=== PATIENT | female | born 1975 | race Caucasian/White ===

== ENCOUNTER 2017-08-21 15:48 | Emergency (ER) | payer OTHER ==
[~2017-08-21] VITALS: Ht 154.9 cm; Wt 74.8 kg
[~2017-08-21 15:48] MED LIST: ALBU90I INH; ALBU90OI INH; ALPR.5 PO; AMOCLA875 PO; AMOX500 PO; AZIT250 PO; BENADRYL25 MG PO; CODGUAEL PO; CRUTCH3 USE; Cyclobenzaprine5 MG PO; Cymbalta20 MG PO; DOXY100 PO; HYDACE5 PO; HYDACE7.5 PO; HYDROCORTISON28.4 G3 TOP; IBUP600 PO; LEVSOD50 PO; MULVITMINE PO; NAPR550 PO; Norco 5-325 Ta1 EACH PO; OXYACE5T PO; PROM25 PO; Percocet 5-3251 EACH PO; RXNAPNA550 PO; RXOXYACE PO; RXPROM25 PO; SERT25 PO; Sudogest60 MG PO; TAZAROTENE TOP; THYROID MEDICINE PO; TRAM50 PO
[2017-08-21] MEDS ORDERED: BENZ100A PO (16:52)
[2017-08-21] MEDS ORDERED: Cheratussin AC118 ML PO (16:52)
[2017-08-21] MEDS ORDERED: ALBU90OI INH (16:52)
[2017-08-21] MEDS ORDERED: (None)20 M1 PO (16:52)
[2018-06-23] MEDS ORDERED: Augmentin 500-1 EACH PO (00:54)
== END 2017-08-21 17:17 | disposition home or self-care (01) ==
LOC: ER 15:48
DX: J20.9 Acute bronchitis, unspecified (principal); F17.210 Nicotine dependence, cigarettes, uncomplicated; Z88.2 Allergy status to sulfonamides; Z79.899 Other long term (current) drug therapy; Z90.49 Acquired absence of other specified parts of digestive tract
CPT/HCPCS: 71046; 94640; 99284

== ENCOUNTER 2017-12-01 22:35 | Emergency (ER) | payer OTHER ==
[~2017-12-01] VITALS: Ht 154.9 cm; Wt 77.1 kg
[~2017-12-01 22:35] MED LIST changes: +(None)20 M1 PO; +BENZ100A PO; +Cheratussin AC118 ML PO
[2017-12-01] MEDS ORDERED: Cleocin HCl300 MG PO (23:43)
[2017-12-01] MEDS ORDERED: IBUP600 PO (23:43)
== END 2017-12-02 00:15 | disposition home or self-care (01) ==
LOC: ER 22:35
DX: L03.115 Cellulitis of right lower limb (principal); Z88.2 Allergy status to sulfonamides; Z88.8 Allergy status to other drugs, medicaments and biological substances; Z79.899 Other long term (current) drug therapy; Z79.2 Long term (current) use of antibiotics; F17.210 Nicotine dependence, cigarettes, uncomplicated
CPT/HCPCS: 99283

== ENCOUNTER 2017-12-30 01:17 | Emergency (ER) | payer OTHER ==
[~2017-12-30] VITALS: Ht 154.9 cm; Wt 78.5 kg
[~2017-12-30 01:17] MED LIST changes: +Cleocin HCl300 MG PO
== END 2017-12-30 02:15 | disposition left against medical advice (07) ==
LOC: ER 01:17
DX: Z53.21 Procedure and treatment not carried out due to patient leaving prior to being seen by health care provider (principal)

== ENCOUNTER 2018-10-07 17:45 | Emergency (ER) | payer OTHER ==
[~2018-10-07] VITALS: Ht 154.9 cm; Wt 83.0 kg
[~2018-10-07 17:45] MED LIST changes: +Augmentin 500-1 EACH PO
== END 2018-10-07 19:36 | disposition home or self-care (01) ==
LOC: ER 17:45
DX: M25.531 Pain in right wrist (principal); M79.631 Pain in right forearm; W22.8XXA Striking against or struck by other objects, initial encounter; F17.210 Nicotine dependence, cigarettes, uncomplicated
CPT/HCPCS: 73110; 99283-25

== ENCOUNTER 2019-02-22 06:01 | Emergency (ER) | payer OTHER ==
[~2019-02-22] VITALS: Ht 154.9 cm; Wt 74.8 kg
[2019-02-22] MEDS ORDERED: LEVSOD100 (07:03)
[2019-02-22] MEDS ORDERED: Ultram50 MG PO (08:12)
== END 2019-02-22 08:23 | disposition home or self-care (01) ==
LOC: ER 06:01
DX: S09.90XA Unspecified injury of head, initial encounter (principal); S16.1XXA Strain of muscle, fascia and tendon at neck level, initial encounter; E03.9 Hypothyroidism, unspecified; Z88.2 Allergy status to sulfonamides; Z91.040 Latex allergy status; Z79.899 Other long term (current) drug therapy; W18.30XA Fall on same level, unspecified, initial encounter
CPT/HCPCS: 70450; 72070; 72125; 93005; 93010; 96374; 96375; 99285-25; J2405; J3010

== ENCOUNTER 2023-02-10 11:56 | Emergency (ER) | payer OTHER ==
[~2023-02-10] VITALS: Ht 154.9 cm; Wt 84.8 kg
[~2023-02-10 11:56] MED LIST changes: +LEVSOD100; +Ultram50 MG PO
[2023-02-10 12:35] LABS: BASOPHILS ABSOLUTE AUTO 0.06 K/mm3 (0.00-0.23); BASOPHILS PERCENT AUTO 1 % (0-2); EOSINOPHILS ABSOLUTE AUTO 0.12 K/mm3 (0.00-0.68); EOSINOPHILS PERCENT AUTO 2 % (0-6); Hematocrit 46.7 % (33.0-51.0); Hemoglobin 15.7 g/dL (11.5-16.0); IMMATURE GRAN ABSOLUTE AUTO 0.06 K/mm3 (0.00-0.10); IMMATURE GRAN PERCENT AUTO 1 % (0-1); LYMPHOCYTES ABSOLUTE AUTO 0.63 K/mm3 (0.84-5.20); LYMPHOCYTES PERCENT AUTO 8 % (21-46); MONOCYTES ABSOLUTE AUTO 0.68 K/mm3 (0.16-1.47); MONOCYTES PERCENT AUTO 9 % (4-13); Mean Corpuscular HGB 28.2 pg (26.0-34.0); Mean Corpuscular HGB Conc 33.6 g/dL (31.5-36.5); Mean Corpuscular Volume 84 fL (80-100); Mean Platelet Volume 11.3 fL (9.1-12.4); NEUTROPHILS ABSOLUTE AUTO 6.12 K/mm3 (1.96-9.15); NEUTROPHILS PERCENT AUTO 80 % (41-73); Platelet Count 264 K/mm3 (150-400); RDW Coefficient Variation 14.9 % (11.7-14.2); RDW Standard Deviation 45.1 fL (35.1-46.3); Red Blood Cell Count 5.57 M/mm3 (3.80-5.20); White Blood Cell Count 7.67 K/mm3 (4.00-11.30)
[2023-02-10 12:59] LABS: Albumin, Blood 4.2 g/dL (3.4-5.0); Albumin/Globulin Ratio 1.1 (0.8-1.8); Bilirubin, Total 0.5 mg/dL (0.1-1.0); Bun/Creatinine Ratio 17.1 (12.0-20.0); Calcium, Blood 9.9 mg/dL (8.5-10.1); Creatinine, Blood 0.64 mg/dL (0.40-1.00); Globulin, Blood 3.9 g/dL (2.2-4.0); Potassium, Blood 4.5 mmol/L (3.5-5.5); Total Protein, Blood 8.1 g/dL (6.4-8.2)
[2023-02-10 13:16] LABS: Source, Urine Clean Catch
[2023-02-10 13:19] LABS: Appearance, Urine Clear (Clear); Bilirubin, Urine Neg (Neg); Blood, Urine 2+ (Neg); Color, Urine Yellow (P-Yellow); Glucose Qualitative, Urine Neg (Neg); Ketones, Urine 1+ (Neg); Leukocyte Esterase, Urine Neg (Neg); Nitrite, Urine Neg (Neg); Protein, Urine 2+ (Neg); Urobilinogen, Urine NORM (Normal)
[2023-02-10 13:31] LABS: Bacteria Mod /hpf
[2023-02-10 13:32] LABS: Squamous Epithelial Cells Many /hpf (Few)
[2023-02-10 13:34] LABS: White Blood Cells, Urine 0-2 /hpf (0-5)
[2023-02-10] MEDS ORDERED: CELE100 PO (16:30)
[2023-02-10] MEDS ORDERED: METPRE4DP PO (16:30)
[2023-02-10] MEDS ORDERED: ALLEGRA ALLERGY60 MG PO (16:30)
[2023-02-10 16:49] VITALS: BP 120/84
== END 2023-02-10 16:45 | disposition home or self-care (01) ==
LOC: ER 11:56
PROVIDERS: Physician Assistant
DX: J44.9 Chronic obstructive pulmonary disease, unspecified (principal); T78.40XA Allergy, unspecified, initial encounter; M54.10 Radiculopathy, site unspecified; M25.552 Pain in left hip; G89.29 Other chronic pain; E03.9 Hypothyroidism, unspecified; F17.210 Nicotine dependence, cigarettes, uncomplicated; Z88.2 Allergy status to sulfonamides; Z91.040 Latex allergy status; Z79.899 Other long term (current) drug therapy
CPT/HCPCS: 73502; 80053; 81001; 83690; 84484; 85025; 87086; 93005; 93010; 96374; 99284-25; J1885

== ENCOUNTER 2023-07-18 13:43 | Emergency (ER) | payer OTHER ==
[~2023-07-18] VITALS: Ht 154.9 cm; Wt 81.7 kg
[~2023-07-18 13:43] MED LIST changes: +ALLEGRA ALLERGY60 MG PO; +CELE100 PO; +METPRE4DP PO
[2023-07-18 14:15] VITALS: BP 126/92
[2023-07-18] MEDS ORDERED: ALBU90OI INH (15:45)
[2023-07-18] MEDS ORDERED: BENZ100A PO (15:45)
== END 2023-07-18 15:45 | disposition home or self-care (01) ==
LOC: ER 13:43
DX: J06.9 Acute upper respiratory infection, unspecified (principal); B97.89 Other viral agents as the cause of diseases classified elsewhere; E03.9 Hypothyroidism, unspecified; F17.210 Nicotine dependence, cigarettes, uncomplicated; Z88.2 Allergy status to sulfonamides; Z91.040 Latex allergy status; Z79.899 Other long term (current) drug therapy; Z79.890 Hormone replacement therapy
CPT/HCPCS: 99283

== ENCOUNTER 2024-01-07 20:22 | Emergency (ER) | payer OTHER ==
[~2024-01-07] VITALS: Ht 154.9 cm; Wt 86.2 kg
[~2024-01-07 20:22] MED LIST changes: +LEVSOD112 PO
[2024-01-07 20:54] LABS: BASOPHILS ABSOLUTE AUTO 0.09 K/mm3 (0.00-0.23); BASOPHILS PERCENT AUTO 1 % (0-2); EOSINOPHILS ABSOLUTE AUTO 0.21 K/mm3 (0.00-0.68); EOSINOPHILS PERCENT AUTO 2 % (0-6); Hematocrit 42.3 % (33.0-51.0); Hemoglobin 14.1 g/dL (11.5-16.0); IMMATURE GRAN ABSOLUTE AUTO 0.03 K/mm3 (0.00-0.10); IMMATURE GRAN PERCENT AUTO 0 % (0-1); LYMPHOCYTES ABSOLUTE AUTO 1.87 K/mm3 (0.84-5.20); LYMPHOCYTES PERCENT AUTO 20 % (21-46); MONOCYTES ABSOLUTE AUTO 0.53 K/mm3 (0.16-1.47); MONOCYTES PERCENT AUTO 6 % (4-13); Mean Corpuscular HGB 28.2 pg (26.0-34.0); Mean Corpuscular HGB Conc 33.3 g/dL (31.5-36.5); Mean Corpuscular Volume 85 fL (80-100); Mean Platelet Volume 12.1 fL (9.1-12.4); NEUTROPHILS ABSOLUTE AUTO 6.74 K/mm3 (1.96-9.15); NEUTROPHILS PERCENT AUTO 71 % (41-73); Platelet Count 262 K/mm3 (150-400); RDW Coefficient Variation 13.6 % (11.7-14.2); RDW Standard Deviation 42.3 fL (35.1-46.3); White Blood Cell Count 9.47 K/mm3 (4.00-11.30)
[2024-01-07 21:33] LABS: Albumin/Globulin Ratio 1.1 (0.8-1.8); Bilirubin, Total 0.3 mg/dL (0.1-1.0); Bun/Creatinine Ratio 14.4 (12.0-20.0); Calcium, Blood 10.1 mg/dL (8.5-10.1); Creatinine, Blood 0.7 mg/dL (0.40-1.00); Globulin, Blood 3.7 g/dL (2.2-4.0); Potassium, Blood 3.8 mmol/L (3.5-5.5); Total Protein, Blood 7.7 g/dL (6.4-8.2)
[2024-01-07] MEDS ORDERED: ALBU90OI INH (23:45)
[2024-01-07] MEDS ORDERED: PredniSONE 20 MG Tab PO ONE (23:45)
[2024-01-07] MEDS ORDERED: Benzonatate 100 MG Cap PO ONE (23:45)
[2024-01-07] MEDS ORDERED: Ipratropium/Albuterol SulF 2.5-0.5MG/3 ML Amp INH ONE (23:45)
[2024-01-07] MEDS ORDERED: Ketorolac Tromethamine 30mg Vial IV ONE (23:45)
[2024-01-07] MEDS ORDERED: BENZ100A PO (23:45)
[2024-01-07] MEDS ORDERED: Prednisone20 MG PO (23:45)
[2024-01-07 23:55] VITALS: BP 118/63
== END 2024-01-08 | disposition home or self-care (01) ==
LOC: ER 20:22
PROVIDERS: Emergency Medicine
DX: J44.0 Chronic obstructive pulmonary disease with (acute) lower respiratory infection (principal); J20.8 Acute bronchitis due to other specified organisms; J44.1 Chronic obstructive pulmonary disease with (acute) exacerbation; F17.210 Nicotine dependence, cigarettes, uncomplicated; Z88.2 Allergy status to sulfonamides; Z91.040 Latex allergy status; E03.9 Hypothyroidism, unspecified; J45.909 Unspecified asthma, uncomplicated
CPT/HCPCS: 71046; 80053; 84484; 85025; 93005; 93010; 94640; 94664; 96374; 99284-25; A9270; J1885; J7512

== ENCOUNTER 2024-01-09 16:28 | Inpatient (IN) | payer OTHER ==
[~2024-01-09] VITALS: Ht 154.9 cm; Wt 87.8 kg
[~2024-01-09 16:28] MED LIST changes: +Prednisone20 MG PO
[2024-01-09] MEDS ORDERED: Ipratropium Bromide INH 0.02% 0.5 mg/2.5ML Vial INH SCH (16:45)
[2024-01-09] MEDS ORDERED: Albuterol 2.5 MG/3 ML VIAL INH SCH ×2 (16:45→16:55)
[2024-01-09] MEDS ORDERED: Magnesium Sulf 2 GM/Water 50ML 50 ML IV ONE ×2 (16:55)
[2024-01-09 17:05] LABS: BASOPHILS ABSOLUTE AUTO 0.08 K/mm3 (0.00-0.23); BASOPHILS PERCENT AUTO 1 % (0-2); EOSINOPHILS ABSOLUTE AUTO 0.04 K/mm3 (0.00-0.68); EOSINOPHILS PERCENT AUTO 0 % (0-6); Hematocrit 43.6 % (33.0-51.0); Hemoglobin 14.4 g/dL (11.5-16.0); IMMATURE GRAN ABSOLUTE AUTO 0.09 K/mm3 (0.00-0.10); IMMATURE GRAN PERCENT AUTO 1 % (0-1); LYMPHOCYTES ABSOLUTE AUTO 1.32 K/mm3 (0.84-5.20); LYMPHOCYTES PERCENT AUTO 9 % (21-46); MONOCYTES PERCENT AUTO 5 % (4-13); Mean Corpuscular Volume 85 fL (80-100); Mean Platelet Volume 12.3 fL (9.1-12.4); NEUTROPHILS ABSOLUTE AUTO 12.62 K/mm3 (1.96-9.15); NEUTROPHILS PERCENT AUTO 85 % (41-73); Platelet Count 292 K/mm3 (150-400); RDW Coefficient Variation 13.8 % (11.7-14.2); Red Blood Cell Count 5.14 M/mm3 (3.80-5.20); White Blood Cell Count 14.85 K/mm3 (4.00-11.30)
[2024-01-09 17:21] LABS: Albumin, Blood 3.9 g/dL (3.4-5.0); Bilirubin, Total 0.2 mg/dL (0.1-1.0); Bun/Creatinine Ratio 20.6 (12.0-20.0); Calcium, Blood 9.7 mg/dL (8.5-10.1); Creatinine, Blood 0.73 mg/dL (0.40-1.00); Globulin, Blood 3.8 g/dL (2.2-4.0); Potassium, Blood 3.9 mmol/L (3.5-5.5); Total Protein, Blood 7.7 g/dL (6.4-8.2)
[2024-01-09 17:44] LABS: Base Excess Venous -0.3 mmol/L; Bicarbonate Venous 24.3 mmol/L (24.0-30.0); PCO2 Venous 39 mmHg (38-42); pH Blood Venous 7.41 (7.34-7.37)
[2024-01-09] MEDS ORDERED: Albuterol 2.5 MG/3 ML VIAL INH PRN (17:50)
[2024-01-09] MEDS ORDERED: Acetaminophen 325 MG TABLET PO PRN (17:50)
[2024-01-09] MEDS ORDERED: NS 1,000 ML IV SCH (17:55)
[2024-01-09] MEDS ORDERED: Ondansetron HCl 2 MG / ML 2ML Vial IV PRN (17:55)
[2024-01-09] MEDS ORDERED: Nicotine 21 MG PATCH TOP PRN (17:55)
[2024-01-09] MEDS ORDERED: Ipratropium/Albuterol SulF 2.5-0.5MG/3 ML Amp INH SCH (17:55)
[2024-01-09] MEDS ORDERED: Azithromycin 500 MG in NS 250 ML IV SCH (18:00)
[2024-01-09] MEDS ORDERED: NS 1,000 ML IV ONE ×3 (18:00→20:35)
[2024-01-09] MEDS ORDERED: Guaifenesin/Dextromethorphan Syrup 5 ML UDC PO PRN (18:45)
[2024-01-09] MEDS ORDERED: Benzonatate 100 MG Cap PO PRN (18:45)
[2024-01-09] MEDS ORDERED: MethylPREDNISolone Sod Succ 125 MG Vial IV SCH (19:00)
[2024-01-09 20:32] LABS: Base Excess Venous -2.6 mmol/L; Bicarbonate Venous 22.7 mmol/L (24.0-30.0); PCO2 Venous 35.9 mmHg (38-42)
[2024-01-10] VITALS (7 sets, daily range): BP systolic 120–151; BP diastolic 73–93
[2024-01-10] MEDS ORDERED: Ibuprofen 600 MG Tab PO ONE (01:20)
[2024-01-10 05:20] LABS: Hematocrit 39.2 % (33.0-51.0); Hemoglobin 12.7 g/dL (11.5-16.0); Mean Corpuscular HGB 28.2 pg (26.0-34.0); Mean Corpuscular HGB Conc 32.4 g/dL (31.5-36.5); Mean Corpuscular Volume 87 fL (80-100); Mean Platelet Volume 12.3 fL (9.1-12.4); Platelet Count 271 K/mm3 (150-400); RDW Coefficient Variation 13.9 % (11.7-14.2); RDW Standard Deviation 44.9 fL (35.1-46.3); Red Blood Cell Count 4.51 M/mm3 (3.80-5.20); White Blood Cell Count 11.37 K/mm3 (4.00-11.30)
[2024-01-10 05:46] LABS: Bun/Creatinine Ratio 23.2 (12.0-20.0); Creatinine, Blood 0.52 mg/dL (0.40-1.00); Potassium, Blood 4.3 mmol/L (3.5-5.5)
[2024-01-10] MEDS ORDERED: Enoxaparin 40 MG/0.4 ML SYR SC SCH (09:00)
[2024-01-10] MEDS ORDERED: Ibuprofen 400 MG Tab PO PRN (12:00)
[2024-01-10] MEDS ORDERED: Acetaminophen 325 MG TABLET PO ONE (12:55)
[2024-01-10] MEDS ORDERED: Ketorolac Tromethamine 30mg Vial IV ONE (17:25)
[2024-01-10] MEDS ORDERED: Ketorolac Tromethamine 30mg Vial IV PRN (17:25)
--- NOTE | 2024-01-10 17:47 | NUR ---
ADMIT NOTE/SHIFT SUMMARY PT ARRIVED TO PCU FROM ED VIA WHEELCHAIR. PT AMBULATED INDEPENDENTLY FROM WHEELCHAIR TO PCU BED. PT A&OX4. SP02>90 %on RA, 2L PLACED FOR COMFORT PER PT REQUEST. INTENSE HACKING SEMI PRODUCTIVE COUGH. COUGHING FIT INTO VOMITING THIS EVENING. TELEMETRY SHOWS NSR, HR 80'S-100'S. PT C/O OF HEADACHE. CALL PLACED TO MD [place]. PT RECEIVED MEDICATONS PER EMAR, SEE EMAR. MOST RECENTLY TORADOL X1. PURWIK PLACED TO AVOID AMBULATION D/T SP02 CONCERNS. PT C/O OF PAIN IN ABD. CLOTS WHEN VOIDING IN ER, BUT NONE SINCE CARE ASSUMED BY THIS RN. NOTIFIED. ABX INFUSING PER EMAR. FAMILY CURRENTLY IN ROOM WITH PT. CALL LIGHT IN REACH.
[2024-01-10] MEDS ORDERED: Lactobacil 2-S.Thermo-Bifido 1 1 Cap PO SCH (21:00)
[2024-01-11 03:43] VITALS: BP 133/79
[2024-01-11 04:45] LABS: Hematocrit 41.4 % (33.0-51.0); Hemoglobin 13.6 g/dL (11.5-16.0); Mean Corpuscular HGB 27.9 pg (26.0-34.0); Mean Corpuscular HGB Conc 32.9 g/dL (31.5-36.5); Mean Corpuscular Volume 85 fL (80-100); Mean Platelet Volume 12.3 fL (9.1-12.4); Platelet Count 320 K/mm3 (150-400); RDW Coefficient Variation 14.2 % (11.7-14.2); RDW Standard Deviation 43.6 fL (35.1-46.3); Red Blood Cell Count 4.88 M/mm3 (3.80-5.20); White Blood Cell Count 17.76 K/mm3 (4.00-11.30)
[2024-01-11 05:18] LABS: Bun/Creatinine Ratio 22.3 (12.0-20.0); Calcium, Blood 9.8 mg/dL (8.5-10.1); Creatinine, Blood 0.54 mg/dL (0.40-1.00); Free Thyroxine 0.53 ng/dL (0.70-1.60); Potassium, Blood 3.9 mmol/L (3.5-5.5)
[2024-01-11] MEDS ORDERED: Levothyroxine Sodium 0.05 MG Tab PO SCH (06:00)
--- NOTE | 2024-01-11 07:39 | NUR ---
SHIFT SUMMARY PT CONTINUES TO REST IN BED, ALERT AND ORIENTED X 4, PT ANSWERS QUESTIONS APPROPRIATELY, FOLLOWS DIRECTION WHEN PROMPTED AND IS ABLE TO MAKE NEEDS KNOWN. PT MOVES ALL EXTREMITIES EQUALLY BILATERALLY. HR 90-100'S SINUS, MAP >65. PT ON 2LPM O2 VIA NC, OXYGEN SATURATION >95%. PT HAS EXERTIONAL DYSPNEA, RECOVERS QUICKLY. LUNG SOUNDS TIGHT. ABDOMEN SOFT, TENDER, BOWEL TONES ACTIVE IN ALL FOUR QUADRANTS. PT HAS PUREWICK AND ATTENDS IN PLACE. PIV IN PLACE TO LAC SL. BED IN LOWEST POSITION, CALL LIGHT WITHIN REACH, CARE CONTINUES.
[2024-01-11 07:43] VITALS: BP 146/89
[2024-01-11] MEDS ORDERED: Guaifenesin/Dextromethorphan Syrup 5 ML UDC PO PRN (10:05)
[2024-01-11] MEDS ORDERED: HYDROcodone 5-APAP 325 TAB PO PRN (10:05)
[2024-01-11 10:19] LABS: Source, Urine Clean Catch
[2024-01-11 10:26] LABS: Bilirubin, Urine Neg (Neg); Blood, Urine 2+ (Neg); Glucose Qualitative, Urine Neg (Neg); Ketones, Urine Neg (Neg); Leukocyte Esterase, Urine Neg (Neg); Nitrite, Urine Neg (Neg); Protein, Urine 1+ (Neg); Urobilinogen, Urine NORM (Normal)
[2024-01-11 10:34] LABS: Appearance, Urine Hazy (Clear); Color, Urine Yellow (P-Yellow)
[2024-01-11 10:35] LABS: Bacteria Rare /hpf; Squamous Epithelial Cells Many /hpf (Few); White Blood Cells, Urine 0-2 /hpf (0-5)
--- NOTE | 2024-01-11 13:30 | NUR ---
AM NOTES; PT TRANSITIONED TO MEDICAL STATUS NO TELE. PT HAS BEEN A&OX4 ABLE TO STAND AND AMBULATE TO [facility] [facility] IN [place] PER PT'S REQUEST D/T WITH EXERTION AND COUGHING SPITS. COUGH MEDS GIVEN X2 AND SOME TORADOL FOR PAIN. PT NOT TOLERATING SOLID FOODS AT THIS TIME, OFFERED CHICKEN NOODLE SOUP AND ENSURE, PT TOLERATED. BREATHING TX PER RT AND FLUTTER DEVICE. PT ABLE TO COUGH UP SOME MUCUS AFTER. PT ON 2L OF O2 SATS >92%, SBP 140'S, HRR 90-120'S, AFEBRILE. PT WAS TRANSFERRED TO MEDICAL FLOOR RM 301 REPORT GIVEN TO SUYAPA PERDOMO, ALL BELONGINGS SENT WITH THE PT
--- NOTE | 2024-01-11 14:43 | NUR ---
THIS NURSE RECIEVED REPORT FROM SAMIR PERDOMO FROM PCU. PATIENT CAME UP IN HER BED AND THEN WAS ABLE TO TRANSFER HERSELF FROM THE PCU BED TO HER 301 BED. PATIENT IS CURRENTLY LAYING IN BED RECIEVING A BREATHING TREATMENT BY RT WITH CALL LIGHT IN REACH.
[2024-01-11 14:47] VITALS: BP 148/91
--- NOTE | 2024-01-11 15:10 | NUR ---
SHIFT SUMMARY: PATIENT IS A&OX4. SHE IS CURRENTLY ON 2L NC WITH >90% OXYGEN SATS. PATIENT REPORTS FEELING SHORT OF BREATH WITH AMBULATION. SHE RECEIVES RESPIRATORY TREATMENT SUCH DUONEB AND ALBUTEROL TO HELP MANAGE THE SHORTNESS OF BREATH SYMPTOM. PATIENT REPORTS HAVING A "HEADACHE" PAIN PRIOR TO TRANSFER FROM PCU WHICH HAS BEEN RELIEVED WITH IV TORADOL PER EMAR. PATIENT IS A SBA TO STAND PIVIOT FROM BED TO BSC. SHE IS TOLERATING SMALL AMOUNTS OF PO INTAKE AND IS VOIDING. DIETARY HAS BEEN CONSULTED TO INCREASE PO INTAKE. PATIENT LAYING IN BED WITH CALL LIGHT IN REACH. PATIENT CALLS APPROPRIATELY.
--- NOTE | 2024-01-11 16:36 | NUR ---
Upon receiving a referral for spiritual care, I visited the patient. 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 Patient shares about the 12 deaths of family members in a very short times including her spouse a few months ago. We discuss her family dynamics, her coping skills, her mario, and her bereavment work. We talk about her desire to quit smoking as well. I normalized her struggle and provided grief support, gentle relocation counselor and prayer. Patient responded well and showed signs of reduced stress.
[2024-01-11] MEDS ORDERED: Polyethylene Glycol 3350 17 gm PO SCH (18:00)
[2024-01-11 19:37] VITALS: BP 182/119
[2024-01-11 20:37] VITALS: BP 189/122
[2024-01-11] MEDS ORDERED: HydrALAZINE HCl 20 MG / ML 1ML Vial IV PRN (21:00)
[2024-01-11] MEDS ORDERED: Docusate Sodium 100 MG Cap PO SCH (21:00)
[2024-01-11 23:47] VITALS: BP 160/100
[2024-01-12] MEDS ORDERED: FentaNYL Citrate 50 MCG/ML 2 ML Injection IV PRN (00:15)
[2024-01-12] MEDS ORDERED: Acetamin/Butalbital/Caffeine Tab PO PRN (00:15)
[2024-01-12 00:54] LABS: Base Excess Venous 2.1 mmol/L; Bicarbonate Venous 26.3 mmol/L (24.0-30.0); PCO2 Venous 38.4 mmHg (38-42); pH Blood Venous 7.44 (7.34-7.37)
[2024-01-12] MEDS ORDERED: Furosemide 10 MG/ML 4ML Vial IV ONE (01:00)
[2024-01-12] MEDS ORDERED: SUMAtriptan succinate 50 MG Tab PO ONE (01:00)
[2024-01-12 01:16] LABS: Hemoglobin 13.7 g/dL (11.5-16.0); Mean Corpuscular HGB 28.4 pg (26.0-34.0); Mean Corpuscular HGB Conc 33.4 g/dL (31.5-36.5); Mean Corpuscular Volume 85 fL (80-100); Mean Platelet Volume 12.9 fL (9.1-12.4); Platelet Count 306 K/mm3 (150-400); RDW Standard Deviation 43.3 fL (35.1-46.3); Red Blood Cell Count 4.83 M/mm3 (3.80-5.20); White Blood Cell Count 20.64 K/mm3 (4.00-11.30)
[2024-01-12 01:39] LABS: Calcium, Blood 9.1 mg/dL (8.5-10.1); Creatinine, Blood 0.65 mg/dL (0.40-1.00); Potassium, Blood 3.8 mmol/L (3.5-5.5)
[2024-01-12 01:40] LABS: BAND PERCENT MAN 4 % (0-8); BASOPHILS PERCENT MAN 0 % (0-2); EOSINOPHILS PERCENT MAN 0 % (0-6); LYMPHOCYTES ABSOLUTE MAN 1.23 K/mm3 (0.84-5.20); LYMPHOCYTES PERCENT MAN 6 % (21-46); MONOCYTES ABSOLUTE MAN 0.82 K/mm3 (0.16-1.47); MONOCYTES PERCENT MAN 4 % (4-13); NEUTROPHILS ABSOLUTE MAN 18.57 K/mm3 (1.96-9.15); SEG NEUTROPHILS PERCENT MAN 86 % (41-73); TOTAL CELLS COUNTED 100
[2024-01-12 03:36] VITALS: BP 135/98
[2024-01-12] MEDS ORDERED: MethylPREDNISolone Sod Succ 125 MG Vial IV SCH (06:00)
[2024-01-12 07:13] VITALS: BP 132/98
--- NOTE | 2024-01-12 07:16 | NUR ---
SHIFT SUMMARY: PATIENT FULLY ORIENTED, COOPERATIVE. AN EPISODE OF ELEVATED BLOOD PRESSURE LAST NIGHT: TREATED WITH HYDRALAZINE, RT TREATMENT. ÁLVARO CAME TO BEDSIDE, RECOMMENDED BIPAP. INTERVENTIONS SUCCESSFUL, PATIENT FELL ASLEEP.
[2024-01-12] MEDS ORDERED: CefTRIAXone Sodium 1,000 MG in NS 100 ML IV SCH (09:54)
[2024-01-12] MEDS ORDERED: Lactated Ringer's 1,000 ML IV SCH (12:00)
[2024-01-12] MEDS ORDERED: Naloxone HCl 0.4MG / ML 1ML Vial IV PRN (12:50)
[2024-01-12] MEDS ORDERED: Morphine Sulfate 4 MG/1 ML Injection IV PRN (12:55)
--- NOTE | 2024-01-12 14:46 | NUR ---
LATE ENTRY. HELD LOVENOX DUE TO PT REPORTEDLY HAVING BLOOD CLOTS IN URINE. NOT NOTED THIS SHIFT. PT PAIN IS 03/28 DR. DONALDSON NOTIFED OF ASSESSMENT FINDINGS. ORDERS UPDATED THROUGHOUT THE DAY.
[2024-01-12 15:45] VITALS: BP 139/88
--- NOTE | 2024-01-12 17:03 | NUR ---
SUMMARY PT IS ALERT AND ORIENTED X4. COUGH IS HARSH AND NON PRODUCTIVE. PT IS NPO PENDING SPEECH EVAL AND BARIUM SWALLOW TOMORROW, IV FLUIDS CONTINUED, PT REPORTS HEADACHE 9/10 AND PAIN IN THE UPPER EPIGASTRIC AREA STARTING APPROX 1700. HEART AWAITING CALL BACK FROM DR. DONALDSON FOR FUTHER INSTRUCTION. PT IS ABLE TO MAKE NEEDS KNOWN. CURRENTLY PLACED BACK ON CPAP. PT STATED THAT IT HELPED HER HEADACHE BEFORE. SBA DUE TO WEAKNESS AND LINES. FAMILY IS AT BEDSIDE. BED IS IN THE LOWEST POSITION WITH CALL LIGHT IN REACH
--- NOTE | 2024-01-12 17:43 | NUR ---
SPOKE WITH DR. DONALDSON. PER , GET EKG. PLEASE SEE ORDERS
[2024-01-12] MEDS ORDERED: Metoclopramide HCl 5MG / ML 2ML Vial IV PRN (18:00)
[2024-01-12] MEDS ORDERED: Metoclopramide HCl 5MG / ML 2ML Vial IV ONE (18:00)
--- NOTE | 2024-01-12 18:13 | NUR ---
TELE ORDERED A PRECAUTIONARY, PT REPORTS EPIGASTRIC PAIN, EKG SINUS WITH ARRHYTHMIA PULSE 99, MANUAL PULSE 82
[2024-01-12] MEDS ORDERED: NS 100 ML IV ONE (18:29)
[2024-01-12 19:37] VITALS: BP 144/105
[2024-01-13 02:34] VITALS: BP 116/73
[2024-01-13 05:37] LABS: BASOPHILS ABSOLUTE AUTO 0.05 K/mm3 (0.00-0.23); BASOPHILS PERCENT AUTO 0 % (0-2); EOSINOPHILS PERCENT AUTO 0 % (0-6); Hematocrit 41.2 % (33.0-51.0); Hemoglobin 13.7 g/dL (11.5-16.0); IMMATURE GRAN ABSOLUTE AUTO 0.61 K/mm3 (0.00-0.10); IMMATURE GRAN PERCENT AUTO 4 % (0-1); LYMPHOCYTES PERCENT AUTO 8 % (21-46); MONOCYTES PERCENT AUTO 6 % (4-13); Mean Corpuscular HGB 28.4 pg (26.0-34.0); Mean Corpuscular HGB Conc 33.3 g/dL (31.5-36.5); Mean Corpuscular Volume 85 fL (80-100); Mean Platelet Volume 12.9 fL (9.1-12.4); NEUTROPHILS ABSOLUTE AUTO 13.48 K/mm3 (1.96-9.15); NEUTROPHILS PERCENT AUTO 83 % (41-73); Platelet Count 296 K/mm3 (150-400); RDW Coefficient Variation 14.1 % (11.7-14.2); RDW Standard Deviation 43.8 fL (35.1-46.3); Red Blood Cell Count 4.83 M/mm3 (3.80-5.20); White Blood Cell Count 16.34 K/mm3 (4.00-11.30)
[2024-01-13 05:44] LABS: Bun/Creatinine Ratio 30.5 (12.0-20.0); Calcium, Blood 9.4 mg/dL (8.5-10.1); Creatinine, Blood 0.62 mg/dL (0.40-1.00)
--- NOTE | 2024-01-13 06:20 | NUR ---
SHIFT SUMMARY: PATIENT FULLY ORIENTED, COOPERATIVE. PATIENT HAD RT TREATMENTS THROUGH NIGHT FOR COUGHING AND SHORTNESS OF BREATH; PUT ON CPAP AT NIGHT. MORPHINE, TORADOL, AND ZOFRAN PRN GIVEN. PATIENT INTERMITTENT ADMINISTRATION OF LACTATED RINGERS DUE TO PREFERENCE. PATIENT SLEPT INTERMITTENT THROUGH NIGHT.
[2024-01-13 07:38] VITALS: BP 117/73
[2024-01-13 16:35] VITALS: BP 134/91
--- NOTE | 2024-01-13 16:46 | NUR ---
NO ACUTE CHANGES THIS SHIFT. PT CONTINUES TO ENDORSE UPPER EPIGASTRIC PAIN. BOWEL CARE STARTED NOW THAT PT HAS BEEN CLEARED TO EAT. PT IS ALERT AND ORIENTED X4, ABLE TO MAKE NEEDS KNOWN. CPAP HAS BEEN UTILIZED THROUGHOUT THE DAY PT ON CONT PULSE OX, PT DID WORK WITH PATIENT. 2L NC, AND 2L BLEED IN WITH CPAP.
[2024-01-13] MEDS ORDERED: Calcium Carbonate 500 MG Tab Chew PO PRN (18:05)
--- NOTE | 2024-01-13 18:43 | NUR ---
PT REPORTED HAVING HEARTBURN. NOTIFED DR. DONALDSON. CHRISTINE ORDERED. PT OBSERVED EATING SPICY FOOD BROUGHT IN BY FAMILY. PT EDUCATED ON RISK OF HEARTBURN WITH CERTAIN FOODS. PT VERBALIZED UNDERSTANDING.
--- NOTE | 2024-01-13 18:43 | NUR ---
PT IV INFILTRATED MID ANTIBIOTIC. WILL NOTIFY JENNIFER PERDOMO.
[2024-01-13 19:41] VITALS: BP 172/95
[2024-01-14 05:06] VITALS: BP 147/94
[2024-01-14 05:23] LABS: BASOPHILS PERCENT AUTO 1 % (0-2); EOSINOPHILS ABSOLUTE AUTO 0.01 K/mm3 (0.00-0.68); EOSINOPHILS PERCENT AUTO 0 % (0-6); Hematocrit 42.8 % (33.0-51.0); Hemoglobin 13.8 g/dL (11.5-16.0); IMMATURE GRAN ABSOLUTE AUTO 1.01 K/mm3 (0.00-0.10); IMMATURE GRAN PERCENT AUTO 5 % (0-1); LYMPHOCYTES ABSOLUTE AUTO 1.15 K/mm3 (0.84-5.20); LYMPHOCYTES PERCENT AUTO 6 % (21-46); MONOCYTES ABSOLUTE AUTO 0.93 K/mm3 (0.16-1.47); MONOCYTES PERCENT AUTO 5 % (4-13); Mean Corpuscular HGB Conc 32.2 g/dL (31.5-36.5); Mean Corpuscular Volume 87 fL (80-100); NEUTROPHILS ABSOLUTE AUTO 17.61 K/mm3 (1.96-9.15); NEUTROPHILS PERCENT AUTO 85 % (41-73); Platelet Count 312 K/mm3 (150-400); RDW Standard Deviation 44.9 fL (35.1-46.3); Red Blood Cell Count 4.93 M/mm3 (3.80-5.20); White Blood Cell Count 20.81 K/mm3 (4.00-11.30)
--- NOTE | 2024-01-14 05:50 | NUR ---
SHIFT SUMMARY: PATIENT FULLY ORIENTED, COOPERATIVE. NAUSEA WITH ONE COUNT OF EMESIS; REGLAN GIVEN. PATIENT COMPLAINED OF 8/10 PAIN CONSISTENTLY THROUGH NIGHT; MORPHINE AND TORADOL IV GIVEN. PATIENT HAD MULTIPLE INTERRUPTIONS IN SLEEP.
[2024-01-14 06:01] LABS: Bun/Creatinine Ratio 34.7 (12.0-20.0); Calcium, Blood 9.8 mg/dL (8.5-10.1); Creatinine, Blood 0.61 mg/dL (0.40-1.00); Potassium, Blood 4.2 mmol/L (3.5-5.5)
[2024-01-14 07:30] VITALS: BP 149/100
[2024-01-14] MEDS ORDERED: NS 250 ML IV PRN (08:35)
[2024-01-14] MEDS ORDERED: OxyCODONE 5 mg/Acetamin 325 mg TABLET PO PRN (08:40)
[2024-01-14] MEDS ORDERED: Magnesium Hydroxide Conc 10 ML UDC PO PRN (08:45)
[2024-01-14] MEDS ORDERED: IPRAT-ALBUT 0.5-3 ML INH (12:08)
[2024-01-14] MEDS ORDERED: BENZ100A PO (12:08)
[2024-01-14] MEDS ORDERED: MIRALAX1714 PO (12:09)
[2024-01-14] MEDS ORDERED: VISBIOME 112.51 EACH PO (12:09)
[2024-01-14] MEDS ORDERED: LEVOTHYROXINE50 MCG PO (12:10)
[2024-01-14] MEDS ORDERED: CEFU500T30 PO (12:10)
[2024-01-14] MEDS ORDERED: Prednisone10 MG PO (12:11)
[2024-01-14] MEDS ORDERED: TIOT18 INH (12:12)
[2024-01-14] MEDS ORDERED: Percocet 5-3251 EACH PO (12:13)
--- NOTE | 2024-01-14 15:27 | NUR ---
DISCHARGE NOTE MS CHANCE WAS DISCHARGED HOME AT 1500HRS VIA WHEELCHAIR ON HOME OXYGEN WITH WALKER DELIVERED TO HER. DISCHARGED WITH FAMILY. SHE C/O SOB ON MINIMAL EXERTION TODAY, SATS REMAINED GREATER THAN 90% ON OXYGEN 1-2L N/C. C/O CONTINUED PAIN TO CHEST/BACK/HEADACHE, WORSE ON COUGHING. PAIN MEDICATIONS TAKING THE EDGE OFF THE PAIN. SHE VERBALISED UNDERSTANDING OF NEED TO QUIT SMOKING AND HAD MEDICATIONS FOR DISCHARGE INCLUDING NICOTENE PATCHES SENT TO [facility] PER PT REQUEST. SHE VERBALISED UNDERSTANDING TO WSALLOW PILLS ONE AT A TIME WITH APPLE SAUCE TO PREVENT ASPIRATION. VERBALISED UNDERSTANDING OF WRITTEN AND VERBAL DISCHARGE INSTRUCTIONS. PIV AND TELEMETRY REMOVED BY WEBSITE DESIGNER.
== END 2024-01-14 15:03 | disposition home or self-care (01) | DRG 189 ==
LOC: ER 16:28 → PCU 17:49 → ERHOLD 21:28 → MEDS 21:28 → EDBEDREQ 21:34 → PCU 01-10 08:58 → MEDS 01-11 14:23 → ENPENDDIS 01-14 11:05 → MEDS 01-14 15:03
PROVIDERS: Emergency Medicine; Internal Medicine; Nurse Practitioner Acute Care; Physician Assistant; Student in an Organized Health Care Education/Training Program; ADMIT Internal Medicine
DX: J96.01 Acute respiratory failure with hypoxia (principal); J69.0 Pneumonitis due to inhalation of food and vomit; J45.901 Unspecified asthma with (acute) exacerbation; J44.1 Chronic obstructive pulmonary disease with (acute) exacerbation; R65.10 Systemic inflammatory response syndrome (SIRS) of non-infectious origin without acute organ dysfunction; F17.210 Nicotine dependence, cigarettes, uncomplicated; R31.29 Other microscopic hematuria; R13.12 Dysphagia, oropharyngeal phase; E03.9 Hypothyroidism, unspecified; R51.9 Headache, unspecified; R00.0 Tachycardia, unspecified; K59.00 Constipation, unspecified; Z88.2 Allergy status to sulfonamides; Z91.040 Latex allergy status; Z79.51 Long term (current) use of inhaled steroids; Z98.890 Other specified postprocedural states; Z90.49 Acquired absence of other specified parts of digestive tract; Z98.51 Tubal ligation status
CPT/HCPCS: 36415; 71045; 71046; 74177; 74230; 80048; 80053; 81001; 81025; 82803; 83880; 84145; 84439; 84443; 85025; 85027; 87070; 87205; 87449; 92610; 92611; 93005; 93010; 94640; 94644; 94660; 94664; 94761; 94762; 96365; 97110; 97116; 97162; 99285-25; A9270; J0360; J0456; J0696; J1650; J1885; J1940; J2270; J2405; J2765; J2919; J3010; J3475; J7030; J7050; J7120; Q9967

== ENCOUNTER → 2024-02-01 | Outpatient (CLI) | payer OTHER ==
[~2024-02-01] MED LIST changes: +CEFU500T30 PO; +IPRAT-ALBUT 0.5-3 ML INH; +LEVOTHYROXINE50 MCG PO; +MIRALAX1714 PO; +Prednisone10 MG PO; +TIOT18 INH; +VISBIOME 112.51 EACH PO
== END ==
LOC: LAB 11:10 → LAB SHORT 11:10
DX: K21.9 Gastro-esophageal reflux disease without esophagitis (principal)
CPT/HCPCS: 87338

== ENCOUNTER 2024-05-22 17:54 | Emergency (ER) | payer OTHER ==
[~2024-05-22] VITALS: Ht 154.9 cm; Wt 86.2 kg
[2024-05-22 18:48] VITALS: BP 168/112
[2024-05-22] MEDS ORDERED: Diphth,Pertuss(Acell),Tet Vac 0.5 ML VIAL IM ONE (18:55)
[2024-05-22 19:25] LABS: BASOPHILS ABSOLUTE AUTO 0.11 K/mm3 (0.00-0.23); BASOPHILS PERCENT AUTO 1 % (0-2); EOSINOPHILS ABSOLUTE AUTO 0.29 K/mm3 (0.00-0.68); EOSINOPHILS PERCENT AUTO 3 % (0-6); Hematocrit 42.2 % (33.0-51.0); Hemoglobin 13.8 g/dL (11.5-16.0); IMMATURE GRAN ABSOLUTE AUTO 0.02 K/mm3 (0.00-0.10); IMMATURE GRAN PERCENT AUTO 0 % (0-1); LYMPHOCYTES ABSOLUTE AUTO 2.33 K/mm3 (0.84-5.20); LYMPHOCYTES PERCENT AUTO 26 % (21-46); MONOCYTES ABSOLUTE AUTO 0.54 K/mm3 (0.16-1.47); MONOCYTES PERCENT AUTO 6 % (4-13); Mean Corpuscular HGB 27.8 pg (26.0-34.0); Mean Corpuscular HGB Conc 32.7 g/dL (31.5-36.5); Mean Corpuscular Volume 85 fL (80-100); Mean Platelet Volume 11.9 fL (9.1-12.4); NEUTROPHILS ABSOLUTE AUTO 5.59 K/mm3 (1.96-9.15); NEUTROPHILS PERCENT AUTO 63 % (41-73); Platelet Count 290 K/mm3 (150-400); RDW Coefficient Variation 13.5 % (11.7-14.2); RDW Standard Deviation 42.1 fL (35.1-46.3); Red Blood Cell Count 4.96 M/mm3 (3.80-5.20); White Blood Cell Count 8.88 K/mm3 (4.00-11.30)
[2024-05-22 19:58] LABS: Albumin/Globulin Ratio 1.1 (0.8-1.8); Bilirubin, Total 0.2 mg/dL (0.1-1.0); Bun/Creatinine Ratio 11.2 (12.0-20.0); Creatinine, Blood 0.81 mg/dL (0.40-1.00); Globulin, Blood 3.8 g/dL (2.2-4.0); Potassium, Blood 4.1 mmol/L (3.5-5.5); Total Protein, Blood 7.8 g/dL (6.4-8.2)
[2024-05-22] MEDS ORDERED: [UNRECOGNIZED DRUG - OTHER] PO (21:05)
[2024-05-22] MEDS ORDERED: GABA300 PO (21:05)
== END 2024-05-22 21:15 | disposition home or self-care (01) ==
LOC: ER 17:54
PROVIDERS: Emergency Medicine
DX: L28.0 Lichen simplex chronicus (principal); G58.8 Other specified mononeuropathies; L40.9 Psoriasis, unspecified; E03.9 Hypothyroidism, unspecified; F17.210 Nicotine dependence, cigarettes, uncomplicated; Z88.2 Allergy status to sulfonamides; Z91.040 Latex allergy status; Z79.890 Hormone replacement therapy; Z79.52 Long term (current) use of systemic steroids; Z79.899 Other long term (current) drug therapy
CPT/HCPCS: 80053; 85025; 99283

== ENCOUNTER 2024-06-06 11:44 | Day surgery (SDC) | payer OTHER ==
[~2024-06-06] VITALS: Ht 154.9 cm; Wt 87.2 kg
[~2024-06-06 11:44] MED LIST changes: +GABA300 PO; +Lactated Ringer's 1,000 ML IV ONE; +[UNRECOGNIZED DRUG - OTHER] PO
[2024-06-06] MEDS ORDERED: Lactated Ringer's 1,000 ML IV ONE (13:03)
[2024-06-06] MEDS ORDERED: FentaNYL Citrate 50 MCG/ML 2 ML Injection ONE (13:16)
[2024-06-06] MEDS ORDERED: propofoL 50 ML IV ONE (13:16)
[2024-06-06] MEDS ORDERED: Midazolam HCL 1 MG/ML 5MLVIAL ONE (13:16)
[2024-06-06 14:34] VITALS: BP 106/72
== END 2024-06-06 14:33 | disposition home or self-care (01) ==
LOC: ORSCSDS 11:44
DX: K21.9 Gastro-esophageal reflux disease without esophagitis (principal); R10.84 Generalized abdominal pain; K59.00 Constipation, unspecified; K29.70 Gastritis, unspecified, without bleeding; K63.5 Polyp of colon; J44.9 Chronic obstructive pulmonary disease, unspecified; J45.909 Unspecified asthma, uncomplicated; I12.9 Hypertensive chronic kidney disease with stage 1 through stage 4 chronic kidney disease, or unspecified chronic kidney disease; N18.1 Chronic kidney disease, stage 1; E03.9 Hypothyroidism, unspecified; F17.210 Nicotine dependence, cigarettes, uncomplicated; G47.33 Obstructive sleep apnea (adult) (pediatric); Z79.899 Other long term (current) drug therapy
CPT/HCPCS: 88305; 88342; J2250; J2704; J3010; J7120

== ENCOUNTER 2024-09-03 14:36 | Emergency (ER) | payer OTHER ==
[~2024-09-03] VITALS: Ht 154.9 cm; Wt 86.2 kg
[~2024-09-03 14:36] MED LIST changes: -Lactated Ringer's 1,000 ML IV ONE
[2024-09-03 15:19] LABS: BASOPHILS ABSOLUTE AUTO 0.07 K/mm3 (0.00-0.23); BASOPHILS PERCENT AUTO 1 % (0-2); EOSINOPHILS ABSOLUTE AUTO 0.31 K/mm3 (0.00-0.68); EOSINOPHILS PERCENT AUTO 4 % (0-6); Hematocrit 38.5 % (33.0-51.0); Hemoglobin 12.7 g/dL (11.5-16.0); IMMATURE GRAN ABSOLUTE AUTO 0.03 K/mm3 (0.00-0.10); IMMATURE GRAN PERCENT AUTO 0 % (0-1); LYMPHOCYTES ABSOLUTE AUTO 1.54 K/mm3 (0.84-5.20); LYMPHOCYTES PERCENT AUTO 19 % (21-46); MONOCYTES ABSOLUTE AUTO 0.43 K/mm3 (0.16-1.47); MONOCYTES PERCENT AUTO 5 % (4-13); Mean Corpuscular HGB 27.4 pg (26.0-34.0); Mean Corpuscular Volume 83 fL (80-100); Mean Platelet Volume 11.6 fL (9.1-12.4); NEUTROPHILS ABSOLUTE AUTO 5.74 K/mm3 (1.96-9.15); NEUTROPHILS PERCENT AUTO 71 % (41-73); Platelet Count 267 K/mm3 (150-400); RDW Coefficient Variation 14.6 % (11.7-14.2); RDW Standard Deviation 43.9 fL (35.1-46.3); Red Blood Cell Count 4.64 M/mm3 (3.80-5.20); White Blood Cell Count 8.12 K/mm3 (4.00-11.30)
[2024-09-03 15:40] LABS: Albumin, Blood 3.9 g/dL (3.4-5.0); Albumin/Globulin Ratio 1.2 (0.8-1.8); Bilirubin, Total 0.3 mg/dL (0.1-1.0); Bun/Creatinine Ratio 13.7 (12.0-20.0); Calcium, Blood 9.4 mg/dL (8.5-10.1); Creatinine, Blood 0.8 mg/dL (0.40-1.00); Globulin, Blood 3.3 g/dL (2.2-4.0); Potassium, Blood 4.1 mmol/L (3.5-5.5); Total Protein, Blood 7.2 g/dL (6.4-8.2)
[2024-09-03] MEDS ORDERED: PredniSONE 20 MG Tab PO ONE (15:45)
[2024-09-03] MEDS ORDERED: BETA.05TCA TOP (15:55)
[2024-09-03] MEDS ORDERED: Ketorolac Tromethamine 15mg Vial IV ONE (16:00)
[2024-09-03] MEDS ORDERED: Acetaminophen 325 MG TABLET PO ONE (16:00)
[2024-09-03] MEDS ORDERED: OxyCODONE HCL 5 MG TAB PO ONE (16:00)
[2024-09-03] MEDS ORDERED: Gabapentin 300 MG Cap PO ONE (16:00)
[2024-09-03 16:17] VITALS: BP 125/94
[2024-09-03] MEDS ORDERED: PRED20 PO (17:19)
[2024-09-03] MEDS ORDERED: HYDHCL25 PO (17:19)
== END 2024-09-03 17:24 | disposition home or self-care (01) ==
LOC: ER 14:36
PROVIDERS: Physician Assistant
DX: L40.50 Arthropathic psoriasis, unspecified (principal); R07.89 Other chest pain; J45.909 Unspecified asthma, uncomplicated; Z88.2 Allergy status to sulfonamides; Z91.040 Latex allergy status; Z79.811 Long term (current) use of aromatase inhibitors; Z79.51 Long term (current) use of inhaled steroids; Z79.890 Hormone replacement therapy; Z88.8 Allergy status to other drugs, medicaments and biological substances; Z79.891 Long term (current) use of opiate analgesic
CPT/HCPCS: 71045; 73630; 80053; 84484; 85025; 93005; 93010; 96374; 99284-25; A9270; J1885; J7512

== ENCOUNTER 2025-02-26 13:33 | Emergency (ER) | payer OTHER ==
[~2025-02-26] VITALS: Ht 154.9 cm; Wt 89.4 kg
[~2025-02-26 13:33] MED LIST changes: +BETA.05TCA TOP; +HYDHCL25 PO; +PRED20 PO
[2025-02-26] MEDS ORDERED: NS 1,000 ML IV SCH (14:55)
[2025-02-26 15:22] LABS: BASOPHILS ABSOLUTE AUTO 0.05 K/mm3 (0.00-0.23); BASOPHILS PERCENT AUTO 0 % (0-2); EOSINOPHILS ABSOLUTE AUTO 0.00 K/mm3 (0.00-0.68); EOSINOPHILS PERCENT AUTO 0 % (0-6); Hematocrit 43.5 % (33.0-51.0); Hemoglobin 14.0 g/dL (11.5-16.0); IMMATURE GRAN ABSOLUTE AUTO 0.21 K/mm3 (0.00-0.10); IMMATURE GRAN PERCENT AUTO 2 % (0-1); LYMPHOCYTES ABSOLUTE AUTO 1.40 K/mm3 (0.84-5.20); LYMPHOCYTES PERCENT AUTO 10 % (21-46); MONOCYTES ABSOLUTE AUTO 0.27 K/mm3 (0.16-1.47); MONOCYTES PERCENT AUTO 2 % (4-13); Mean Corpuscular HGB Conc 32.2 g/dL (31.5-36.5); Mean Corpuscular Volume 88 fL (80-100); NEUTROPHILS ABSOLUTE AUTO 12.30 K/mm3 (1.96-9.15); NEUTROPHILS PERCENT AUTO 86 % (41-73); NRBC ABSOLUTE 0.00 K/mm3 (0.00-0.02); NRBC Auto 0.0 /100 WBC (0.0-0.2); Platelet Count 387 K/mm3 (150-400); RDW Coefficient Variation 15.5 % (11.7-14.2); RDW Standard Deviation 49.9 fL (35.1-46.3)
[2025-02-26 15:25] LABS: Source, Urine Clean Catch
[2025-02-26 15:46] LABS: Alanine Aminotransfer (ALT/SGP 42.0 U/L (12-78); Albumin, Blood 3.8 g/dL (3.4-5.0); Albumin/Globulin Ratio 1.2 (0.8-1.8); Anion Gap 8.0 mmol/L (3-11); Aspartate Aminotrans (AST/SGOT 24.0 U/L (12-37); Bilirubin, Total 0.2 mg/dL (0.1-1.0); Blood Urea Nitrogen 15.0 mg/dL (8-24); CO2, Blood 25.0 mmol/L (21-32); Calcium, Blood 10.2 mg/dL (8.5-10.1); Chloride, Blood 105.0 mmol/L (98-108); Creatinine, Blood 0.68 mg/dL (0.40-1.00); Globulin, Blood 3.3 g/dL (2.2-4.0); Glucose, Blood 130.0 mg/dL (70-99); Potassium, Blood 4.3 mmol/L (3.5-5.5); Sodium, Blood 134.0 mmol/L (136-145); Total Protein, Blood 7.1 g/dL (6.4-8.2)
[2025-02-26 16:52] LABS: Bilirubin, Urine Neg (Neg); Glucose Qualitative, Urine Neg (Neg); Ketones, Urine Neg (Neg); Leukocyte Esterase, Urine Neg (Neg); Protein, Urine 1+ (Neg); Specific Gravity, Urine 1.010 (1.003-1.022); Urobilinogen, Urine NORM (Normal)
[2025-02-26 17:14] LABS: Color, Urine Pale Yellow (P-Yellow)
[2025-02-26 17:15] LABS: White Blood Cells, Urine 0-2 /hpf (0-5)
[2025-02-26 19:05] VITALS: BP 153/106
[2025-02-26] MEDS ORDERED: Ondansetron HCl 2 MG / ML 2ML Vial IV ONE (19:15)
[2025-02-26] MEDS ORDERED: Ketorolac Tromethamine 15mg Vial IV ONE (19:15)
[2025-02-26] MEDS ORDERED: HYDROmorphone HCl/Pf 1MG SYR IV ONE (19:15)
[2025-02-26] MEDS ORDERED: Atropine/Scopalam/Hyoscam/PB 5 ML UDC PO ONE (21:40)
[2025-02-26] MEDS ORDERED: Lidocaine 2% Viscous Soln 15 ML UDC PO ONE (21:40)
[2025-02-26] MEDS ORDERED: RX Prepack 2 Tabs Ondansetron ODT 4MG UD ONE (21:50)
== END 2025-02-26 22:02 | disposition home or self-care (01) ==
LOC: ER 13:33
PROVIDERS: Student in an Organized Health Care Education/Training Program
DX: K27.9 Peptic ulcer, site unspecified, unspecified as acute or chronic, without hemorrhage or perforation (principal); K21.9 Gastro-esophageal reflux disease without esophagitis; E03.9 Hypothyroidism, unspecified; J45.909 Unspecified asthma, uncomplicated; F17.210 Nicotine dependence, cigarettes, uncomplicated; Z79.890 Hormone replacement therapy; Z79.899 Other long term (current) drug therapy; Z88.2 Allergy status to sulfonamides; Z91.040 Latex allergy status
CPT/HCPCS: 74177; 80053; 81001; 83690; 84484; 85025; A9270; J1171; J1885; J2405; J7030; Q9967

== ENCOUNTER 2025-03-06 06:14 | Day surgery (SDC) | payer OTHER ==
[2025-03-06] VITALS (10 sets, daily range): BP systolic 105–141; BP diastolic 63–93
[~2025-03-06] VITALS: Ht 157.5 cm; Wt 90.2 kg
[~2025-03-06 06:14] MED LIST changes: +CLOBETASOL EMOL15 G1 TOP; +IBUP800 PO; +Ketoconazole15 GM TOP; -LEVOTHYROXINE50 MCG PO; +LEVSOD100 PO; +TRELEGY ELLIPT1 EAC1 INH
[2025-03-06] MEDS ORDERED: CeFAZolin Sodium 2,000 MG in NS 100 ML IV SCH (06:20)
[2025-03-06] MEDS ORDERED: OXYCODONE-ACET1 EAC2 PO (06:33)
[2025-03-06] MEDS ORDERED: Bupivacaine 0.5% HCl 5 MG/ML 30MLVIAL ONE (07:04)
[2025-03-06] MEDS ORDERED: Rocuronium Bromide 10 MG/ML 5ML Injection IV ONE ×2 (07:31→08:12)
[2025-03-06] MEDS ORDERED: Ketorolac Tromethamine 30mg Vial ONE (07:31)
[2025-03-06] MEDS ORDERED: Ondansetron HCl 2 MG / ML 2ML Vial ONE (07:31)
[2025-03-06] MEDS ORDERED: Dexamethasone Sod Phos 10 MG/ML 1ML VIAL ONE (07:31)
[2025-03-06] MEDS ORDERED: FentaNYL Citrate 50 MCG/ML 2 ML Injection ONE (07:31)
[2025-03-06] MEDS ORDERED: Phenylephrine HCl 100 MCG/ML-NS 10MLSYR (1MG/10ML) ONE (07:58)
[2025-03-06] MEDS ORDERED: Albuterol 2.5 MG/3 ML VIAL INH PRN (08:30)
[2025-03-06] MEDS ORDERED: FentaNYL Citrate 50 MCG/ML 2 ML Injection IV PRN (08:35)
[2025-03-06] MEDS ORDERED: HYDROmorphone HCl/Pf 1MG SYR IV PRN (08:35)
[2025-03-06] MEDS ORDERED: Ondansetron HCl 2 MG / ML 2ML Vial IV PRN (08:35)
[2025-03-06] MEDS ORDERED: Sugammadex Sodium 200 MG/2ML SDV (100 MG/ML) ONE (08:44)
[2025-03-06] MEDS ORDERED: HYDROcodone 5-APAP 325 TAB PO PRN (08:50)
[2025-03-06] MEDS ORDERED: HYDROmorphone HCl/Pf 1MG SYR ONE ×2 (09:06→09:27)
--- NOTE | 2025-03-06 09:45 | NUR ---
PT AXOX4, ABLE TO REPOSITION SELF IN BED, REQUESTING AND TOLERATING PO FLUIDS AND FOOD. THREE INCISION SITES ON ABD COVERED WITH DERMABOND, ALL CDI W/O SWELLING, REDNESS, INFLAMMATION.
--- NOTE | 2025-03-06 10:24 | NUR ---
Patient up to Ambulate independently. Gait steady. Discharge instructions reviewed with patient. Patient verbalizes understanding. Copy given to patient to take home. Dressing to procedure site clean, dry, intact with no visible drainage, swelling, erythema or bruising noted. Discharged via wheelchair to private car for ride home. ALL BELONGINGS RETURNED TO PATIENT UPON DC.
== END 2025-03-06 23:00 | disposition home or self-care (01) ==
LOC: ORSCMMR 06:14 → ORD 07:30 → ORSCMMR 07:30
PROVIDERS: Surgery
PROC: 8E0W4CZ Robotic Assisted Procedure of Trunk Region, Percutaneous Endoscopic Approach (ICD-10-PCS; principal; 2025-03-06 07:30)
PROC: 0YU54JZ Supplement Right Inguinal Region with Synthetic Substitute, Percutaneous Endoscopic Approach (ICD-10-PCS; principal; 2025-03-06 07:30)
DX: K40.90 Unilateral inguinal hernia, without obstruction or gangrene, not specified as recurrent (principal); G47.33 Obstructive sleep apnea (adult) (pediatric); J44.9 Chronic obstructive pulmonary disease, unspecified; K21.9 Gastro-esophageal reflux disease without esophagitis; E03.9 Hypothyroidism, unspecified; F41.9 Anxiety disorder, unspecified; F17.210 Nicotine dependence, cigarettes, uncomplicated; I12.9 Hypertensive chronic kidney disease with stage 1 through stage 4 chronic kidney disease, or unspecified chronic kidney disease; N18.1 Chronic kidney disease, stage 1; Z79.899 Other long term (current) drug therapy
CPT/HCPCS: A9270; C1781; J0690; J1100; J1171; J1885; J2371; J2405; J2704; J3010; J7120